=== PATIENT | male | born 1955 | race Caucasian/White ===

== ENCOUNTER → 2016-09-15 | Outpatient (CLI) | payer BC ==
[~2016-09-15] MED LIST: ASPCH81X PO; ATEN50TA21 PO; CANA1TAB5 PO; CHOL1000 PO; CRS/10 PO; LISI40TA PO; MULTTAB5 PO; NAPR1CAP12 PO
[2016-09-15 09:43] LABS: BASO % 1.1 %; BASO ABS # 0.06 K/uL (0-0.2); COMPLETE YES; EOS % 5.2 %; HEMATOCRIT 47.1 % (42-52); IG% 0.2 %; LYMPH % 29.2 %; LYMPH ABS # 1.58 K/uL (1.2-3.4); MEAN CELL VOLUME 88.2 fL (80-100); MEAN CORPUSCULAR HEMOGLOBIN 30.3 pg (25-34); MEAN CORPUSCULAR HGB CONC 34.4 g/dl (32-36); MEAN PLATELET VOLUME 10.8 fL (7.4-10.4); MONO % 10.5 %; NEUT % 53.8 %; PLATELET COUNT 213 K/uL (130-400); RED BLOOD COUNT 5.34 M/uL (4.7-6.1); WHITE BLOOD COUNT 5.42 K/uL (4.8-10.8)
[2016-09-15 09:46] LABS: URINE APPEARANCE CLEAR (CLEAR); URINE BILIRUBIN NEG (NEG); URINE COLOR YELLOW; URINE EPITHELIAL CELL AUTO 0-5 /lpf (0-5); URINE NITRITE NEG (NEG); URINE SPECIFIC GRAVITY 1.043 (1.000-1.030); UROBILINOGEN NEG (NEG); ZZUR CULT IF INDIC CLEAN CATCH NO
[2016-09-15 09:53] LABS: MANUAL MICROSCOPIC REQUIRED? NO; REVIEW REQ? NO
[2016-09-15 09:56] LABS: ALT/SGPT 25 U/L (12-78); BLOOD UREA NITROGEN 20 mg/dl (7-18); BUN/CREATININE RATIO 21.3 (10-20); CALCIUM 9.5 mg/dl (8.5-10.1); CARBON DIOXIDE 23 mmol/L (21-32); CHLORIDE 103 mmol/L (98-107); CHOLESTEROL 196 mg/dl (0-200); CREATININE 0.94 mg/dl (0.60-1.40); GLUCOSE 119 mg/dl (70-99); POTASSIUM 4.1 mmol/L (3.5-5.1); SODIUM 138 mmol/L (136-145)
[2016-09-15 10:06] LABS: ALB/GLOB RATIO 1.2 (0.9-2); ALKALINE PHOSPHATASE 94 U/L (45-117); AST/SGOT 14 U/L (15-37); CHOLESTEROL/HDL RATIO 4.6; HDL CHOLESTEROL 43 mg/dl; LDL CHOLESTEROL CALCULATED 124 mg/dl; PROSTATE SPECIFIC ANTIGEN 0.384 ng/ml (0.000-4.000); TRIGLYCERIDES 147 mg/dl (0-150); VERY LOW DENSITY LIPOPROT CALC 29 mg/dl
[2016-09-15 10:39] LABS: RATIO 16.5 mcg/mg (0-30.0)
[2016-09-15 10:49] LABS: ESTIMATED AVERAGE GLUCOSE 148 mg/dl; HA1C FLAG Normal (Normal)
--- NOTE | 2016-09-17 07:54 | CODING QUERY MEDICAL NECESSITY ---
SUPPORTING DIAGNOSIS NEEDED Dr. Lott, A supporting diagnosis is required for the test/procedure performed on this patient in order for us to be reimbursed by the patient's insurance. Please provide a supporting diagnosis for the following test/procedure listed below next to the test name along with your signature. *If there is no additional diagnosis for this patient that would support the following test/procedure please document that below next to the test/procedure. Test(s)/Procedure(s) that require a supporting diagnosis: * PSA DIAGNOSIS: DATE OF SERVICE: 09/15/16 Provider Signature: Date: Thank you Juan Manuel Chau [facility] Information Management Once completed, please kindly fax back to [phone] For questions please call [phone]
== END | disposition home or self-care (01) ==
LOC: C.LAB 07:30
PROVIDERS: ATTEND Internal Medicine
DX: E11.9 Type 2 diabetes mellitus without complications (principal); E78.5 Hyperlipidemia, unspecified; Z12.5 Encounter for screening for malignant neoplasm of prostate

== ENCOUNTER → 2016-10-15 | Outpatient (CLI) | payer BC, OTHER | END | disposition home or self-care (01) | LOC: C.RDSM 15:30 | PROVIDERS: ATTEND Orthopaedic Surgery Sports Medicine | DX: M79.641 Pain in right hand (principal) ==

== ENCOUNTER → 2017-02-13 | Outpatient (CLI) | payer BC ==
[~2017-02-13] MED LIST changes: +CANA1TAB8 PO; +ROSU40TA PO
[2017-02-13 12:46] LABS: ESTIMATED AVERAGE GLUCOSE 148 mg/dl; HA1C FLAG Normal (Normal)
== END | disposition home or self-care (01) ==
LOC: C.LABBFT 07:58
PROVIDERS: ATTEND Internal Medicine
DX: E78.5 Hyperlipidemia, unspecified (principal); E11.9 Type 2 diabetes mellitus without complications

== ENCOUNTER → 2017-02-18 | Outpatient (CLI) | payer BC ==
[~2017-02-18] MED LIST changes: -CANA1TAB8 PO; -ROSU40TA PO
--- NOTE | 2017-02-18 17:19 | DIAGNOSTIC IMAGING REPORT ---
RIGHT STERNOCLAVICULAR JOINT(S) 3 VIEWS CLINICAL HISTORY: ENLARGEMENT OF STERNOCLAVICULAR JOINT Right COMPARISON STUDY: None. FINDINGS: There is mild cartilage space narrowing and marginal osteophytes at the bilateral sternoclavicular joints consistent with degenerative change. The alignment is intact. No fractures identified. No erosions identified. 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 Electronically signed by: Macho Wilkins M.D. 02/18/2017 5:18 PM Dictated Date/Time: 02/18/2017 5:17 PM
== END | disposition home or self-care (01) ==
LOC: C.RAD 16:49
PROVIDERS: ATTEND Internal Medicine
DX: M25.819 Other specified joint disorders, unspecified shoulder (principal)

== ENCOUNTER 2017-06-15 19:36 | Emergency (ER) | payer BC ==
[~2017-06-15] VITALS: Ht 179.1 cm; Wt 95.5 kg
[2017-06-15 19:52] VITALS: Ht 179.1 cm; Wt 95.5 kg
--- NOTE | 2017-06-15 20:39 | EMERGENCY ROOM VISIT NOTE ---
History Report prepared by Fara: Virgilio Kate Under the Supervision of: Dr. Titi Prakash M.D. First contact with patient: 20:07 Chief Complaint: CARDIAC ASSESSMENT Stated Complaint: PALPITATIONS Nursing Triage Summary: Patient arrives to ED via ALS transport after having 3-4 minute episode of heart racing while sitting and watching TV. Patient has been seeing physician regarding these episodes and notes dizziness for a week or two. Patient had Lisinopril dose cut in half one week ago. Wore Holter monitor for a period of time but showed no episodes/runs of tachycardia. VSS for EMS and BSG 170. SOB noted earlier, denies now. History of Present Illness The patient is a 61 year old male who presents to the Emergency Room with complaints of resolved palpitations that occurred two hours ago. He describes his symptoms as a pounding sensation. The patient states that he had neck stiffness for a week that radiates up to his head. He reports that he has also been lightheaded, which is worse when he bends over. The patient admits that he was on a Holter monitor at one point for these symptoms. He states that today he was sitting and watching television when his heart became tachycardic. The patient states that he was experiencing mild chest pain, mild shortness of breath, and diaphoresis. His states that the patient was "staring". The patient states that the episode lasted for 30 seconds and he sat up and felt better. He reports that he was brought into the ED via EMS and his blood sugar was [address] over. He admits that he had these symptoms before 15 years ago. The patient states that he had to get a shot for treatment in his home and was admitted to the hospital for a couple of days. He admits that he is on blood pressure pills and his pills were decreased by half in dose two weeks ago. The patient admits that he had a stress test five years ago, which was normal. The patient states his brother has a history of blood clots in his legs and lungs and a myocardial infarction. He reports that his PCP is Dr. Lott and he denies seeing a readers' advisory service librarian. The patient denies recent travel, personal blood clot history, swelling in legs, a history of myocardial infarction, and current smoking. 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 A total of 10 systems reviewed and were otherwise negative. Past Medical & Surgical Medical Problems: (1) Diabetes (2) Hypertension Surgical Problems: (1) H/O knee surgery (2) Kidney stone Family History Cancer Diabetes mellitus FH: heart disease Hypertension Social History Smoking Status: Former Smoker Alcohol Use: occasionally Drug Use: none Marital Status: Housing Status: lives with significant other Occupation Status: employed Current/Historical Medications Scheduled Aspirin (Aspirin Chewable), 81 MG PO QAM Atenolol & Chlorthalidone (Tenoretic 50MG/25MG), 1 TAB PO QAM Canagliflozin-Metformin HCl (Invokamet 150-1000 mg), 1 TAB PO BID Cholecalciferol (Vitamin D3), 1,000 UNITS PO QAM Lisinopril (Zestril), 40 MG PO QAM Multiple Vitamins W/ Minerals (Centrum), 1 TAB PO QAM Rosuvastatin Calcium (Crestor), 40 MG PO DAILY Scheduled PRN Naproxen Sodium (Aleve), 2 CAP PO DAILY PRN for Pain Allergies Coded Allergies: No Known Allergies (Verified , 01/16/16) Physical Exam Vital Signs Date Time Temp Pulse Resp B/P (MAP) Pulse Ox O2 Delivery O2 Flow Rate FiO2 06/15/17 23:05 85 17 125/70 96 06/15/17 21:06 92 16 96 06/15/17 21:01 132/87 06/15/17 20:36 91 06/15/17 20:36 89 17 96 06/15/17 20:31 129/87 06/15/17 19:52 92 17 134/56 98 Room Air 06/15/17 19:52 92 Room Air Physical Exam GENERAL: Patient is in no acute distress. HEENT: No acute trauma, normocephalic atraumatic, mucous membranes moist, no nasal congestion, no scleral icterus. NECK: No stridor, no adenopathy, no meningismus, trachea is midline. LUNGS: Clear to auscultation bilaterally, no wheeze, no rhonchi, breath sounds equal. HEART: Without murmurs gallops or rubs, regular rate and rhythm. ABDOMEN: Soft, nontender, bowel sounds positive, no hernias, no peritonitis. EXTREMITIES: No cyanosis or edema, full range of motion of all the joints without pain or difficulty, no signs for acute trauma. NEUROLOGIC: Oriented x 3, no acute motor or sensory deficits, no focal weakness. SKIN: No rash, no jaundice, no diaphoresis. Medical Decision & Procedures ER Provider Diagnostic Interpretation: Radiology results as stated below per my review and radiologist interpretation: SINGLE VIEW CHEST CLINICAL HISTORY: Atypical chest pain. FINDINGS: An AP, portable, upright chest radiograph is obtained. No prior studies are available for comparison at the time of dictation. The examination is degraded by portable technique and apical lordotic positioning. The heart is top normal for projection. The mid stomach contour is within normal limits. A large calcified granuloma versus bone island projects over the left lower chest. The lungs and pleural spaces are otherwise clear. No pneumothorax is seen. The bony thorax is grossly intact. IMPRESSION: No acute cardiopulmonary abnormality. Electronically signed by: Titi Fuentes M.D. 06/15/2017 8:46 PM Dictated Date/Time: 06/15/2017 8:[address] ANGIOGRAM OF THE CHEST CLINICAL HISTORY: Atypical chest pain. Palpitations. COMPARISON STUDY: Chest x-ray dated 06/15/2017. TECHNIQUE: Following the IV administration of 107 cc of Optiray 320, CT angiogram of the chest was performed from the upper abdomen to the thoracic inlet utilizing the pulmonary embolus protocol. Images are reviewed in the axial, sagittal, and coronal planes. 3-D MIPS images are created and assessed. IV contrast was administered without complication. A dose lowering technique was utilized adhering to the principles of ALARA. CT DOSE: 590.78 mGy.cm FINDINGS: Thyroid: Imaged portions of the thyroid gland are normal in size and attenuation. Thoracic aorta: The thoracic aorta is normal in caliber and demonstrates standard 3-vessel arch anatomy. No dissection is seen. There is approximately 50% stenosis identified in the proximal left subclavian artery. Pulmonary vasculature: The pulmonary trunk is normal in caliber. There are no filling defects identified in main, lobar, or segmental pulmonary branches to suggest pulmonary embolus. Heart: The heart is normal in size and configuration, and without pericardial effusion. There are coronary artery calcifications. Lungs and pleural spaces: Evaluation of the lung parenchyma is modestly degraded by motion artifact. A small calcified granuloma is seen in the left upper lobe. No airspace consolidation or pleural effusion is seen. The trachea and central airways are clear. Mediastinum: There is no mediastinal lymphadenopathy. Christine: Clear. Axillae: There is no axillary lymphadenopathy. Upper abdomen: A 12 mm cyst is noted in the left hepatic lobe. A tiny hiatal hernia is identified. Skeletal structures: The skeletal structures appear osteopenic. Degenerative change and mild scoliosis is seen in the thoracic spine. Sclerotic degenerative change is present in the sternoclavicular joints, left greater than right. No lytic or blastic bony lesions are seen. A bone island is present within the anterior left sixth rib. IMPRESSION: 1. There is no evidence of pulmonary embolus in the main, lobar, or segmental pulmonary arteries. 2. No airspace consolidation or pleural effusion is identified. 3. There is approximately 50% stenosis of the proximal left subclavian artery. 4. Additional findings as above. Electronically signed by: Titi Fuentes M.D. 06/15/2017 10:21 PM Dictated Date/Time: 06/15/2017 10:16 PM Laboratory Results 06/15/17 19:21 06/15/17 19:21 Test 06/15/17 19:21 06/15/17 20:29 06/15/17 22:36 Red Blood Count 4.49 M/uL (4.7-6.1) Mean Corpuscular Volume 87.8 fL (80-100) Mean Corpuscular Hemoglobin 30.3 pg (25-34) Mean Corpuscular Hemoglobin Concent 34.5 g/dl (32-36) RDW Standard Deviation 43.2 fL (36.4-46.3) RDW Coefficient of Variation 13.4 % (11.5-14.5) Mean Platelet Volume 10.3 fL (7.4-10.4) Prothrombin Time 10.2 SECONDS (9.0-12.0) Prothromb Time International Ratio 1.0 (0.9-1.1) Activated Partial Thromboplast Time 26.2 SECONDS (21.0-31.0) Partial Thromboplastin Ratio 1.0 Anion Gap 10.0 mmol/L (3-11) Est Creatinine Clear Calc Drug Dose 66.7 ml/min Estimated GFR () 64.6 Estimated GFR (Non- 55.8 BUN/Creatinine Ratio 13.5 (10-20) Calcium Level 9.0 mg/dl (8.5-10.1) Magnesium Level 1.8 mg/dl (1.8-2.4) Total Bilirubin 0.7 mg/dl (0.2-1) Aspartate Amino Transf (AST/SGOT) 12 U/L (15-37) Alanine Aminotransferase (ALT/SGPT) 23 U/L (12-78) Alkaline Phosphatase 77 U/L (45-117) Total Protein 7.2 gm/dl (6.4-8.2) Albumin 3.8 gm/dl (3.4-5.0) Globulin 3.4 gm/dl (2.5-4.0) Albumin/Globulin Ratio 1.1 (0.9-2) Thyroid Stimulating Hormone (TSH) 1.040 uIu/ml (0.300-4.500) Bedside D-Dimer > 450 ng/mlFEU (0-450) Bedside Troponin I < 0.030 ng/ml (0-0.045) Laboratory results reviewed by me. ECG Indication: palpitations Rate (beats per minute): 87 Rhythm: normal sinus Findings: no acute ischemic change, no ectopy ED Course 2009: The patient was evaluated in room C02B. A complete history and physical exam was performed. 2119: I reevaluated the patient and he is doing well. I updated him on his results and he is heading over to CT. 2239: I reevaluated the patient and updated him on his results. 2253: I discussed the patient's case with Dr. Park, [facility] , He reports that the patient is able to go home and be treated as outpatient. 2258: Reevaluated the patient. Discussed results and discharge instructions: He verbalized understanding and agreement. The patient is ready for discharge. Medical Decision The patient is a 61 year old male who presents to the ED with complaints of resolved palpitations that occurred 2 hours ago. Differential diagnoses considered include SVT, Afib or a flutter, Ventricular tachycardia, Cardiac ischemia, anemia, electrolyte imbalance, PE, pneumonia. There is no leukocytosis or concerning anemia. No significant electrolyte abnormality, kidney failure, hepatitis. The patient appears to be in a euthyroid state. EKG shows a normal sinus rhythm, no acute ischemia. Cardiac enzyme testing 2 is not consistent with acute cardiac injury. Chest x-ray does not show pneumonia, mediastinal widening or pneumothorax. D-dimer was elevated. Chest CT does not show PE or evidence for aortic dissection. There was narrowing of the left subclavian artery found incidentally. The patient has been symptom free during his ER stay. I did speak with the readers' advisory service librarian front office help. The patient is being discharged with outpatient follow- up. He will return for any worsening symptoms. He was reassured and discharged home. Medication Reconcilliation Current Medication List: was personally reviewed by me Blood Pressure Screening Patient's blood pressure: Elevated blood pressure Blood pressure disposition: Elevated BP felt to be situational Consults Time Called: 2253 Consulting Physician: Dr. Park, [facility] Returned Call: 2253 I discussed the patient's case with Dr. Park, [facility], He reports that the patient is able to go home and be treated as outpatient. Impression Primary Impression: Palpitations Scribe Attestation The scribe's documentation has been prepared under my direction and personally reviewed by me in its entirety. I confirm that the note above accurately reflects all work, treatment, procedures, and medical decision making performed by me. Departure Information Dispostion Home / Self-Care Referrals Bayron Lott M.D. (PCP) Jose Park, DO Patient Instructions My [facility] Additional Instructions follow with your doctor and cardiology return for the return of symptoms all meds the same for now heart and lung testing was all ok today there was a narrowing to your left subclavian artery incidentally noted for which you can follow with your robbie reyes
[2017-06-15 20:46] LABS: POINT OF CARE TROPONIN I < 0.030 ng/ml (0-0.045)
--- NOTE | 2017-06-15 20:48 | DIAGNOSTIC IMAGING REPORT ---
SINGLE VIEW CHEST CLINICAL HISTORY: Atypical chest pain. FINDINGS: An AP, portable, upright chest radiograph is obtained. No prior studies are available for comparison at the time of dictation. The examination is degraded by portable technique and apical lordotic positioning. The heart is top normal for projection. The mid stomach contour is within normal limits. A large calcified granuloma versus bone island projects over the left lower chest. The lungs and pleural spaces are otherwise clear. No pneumothorax is seen. The bony thorax is grossly intact. IMPRESSION: No acute cardiopulmonary abnormality. Electronically signed by: Titi Fuentes M.D. 06/15/2017 8:46 PM Dictated Date/Time: 06/15/2017 8:45 PM
[2017-06-15 20:49] LABS: PROTHROMBIN TIME (PATIENT) 10.2 SECONDS (9.0-12.0)
[2017-06-15 20:52] LABS: BUN/CREATININE RATIO 13.5 (10-20); CREATININE 1.36 mg/dl (0.60-1.40); MAGNESIUM 1.8 mg/dl (1.8-2.4); POTASSIUM 3.4 mmol/L (3.5-5.1)
[2017-06-15 20:57] LABS: HEMATOCRIT 39.4 % (42-52); MEAN CELL VOLUME 87.8 fL (80-100); MEAN CORPUSCULAR HEMOGLOBIN 30.3 pg (25-34); MEAN CORPUSCULAR HGB CONC 34.5 g/dl (32-36); MEAN PLATELET VOLUME 10.3 fL (7.4-10.4); PLATELET COUNT 186 K/uL (130-400); RED BLOOD COUNT 4.49 M/uL (4.7-6.1); WHITE BLOOD COUNT 6.12 K/uL (4.8-10.8)
[2017-06-15 21:03] LABS: ALB/GLOB RATIO 1.1 (0.9-2); THYROID STIMULATING HORMONE 1.04 uIu/ml (0.300-4.500)
[2017-06-15] MEDS ORDERED: ROSU40TA PO (21:05)
[2017-06-15] MEDS ORDERED: CANA1TAB8 PO (21:07)
[2017-06-15] MEDS ORDERED: OPTIRAY 320 IV PRN (21:30)
--- NOTE | 2017-06-15 22:23 | DIAGNOSTIC IMAGING REPORT ---
CT ANGIOGRAM OF THE CHEST CLINICAL HISTORY: Atypical chest pain. Palpitations. COMPARISON STUDY: Chest x-ray dated 06/15/2017. TECHNIQUE: Following the IV administration of 107 cc of Optiray 320, CT angiogram of the chest was performed from the upper abdomen to the thoracic inlet utilizing the pulmonary embolus protocol. Images are reviewed in the axial, sagittal, and coronal planes. 3-D MIPS images are created and assessed. IV contrast was administered without complication. A dose lowering technique was utilized adhering to the principles of ALARA. CT DOSE: 590.78 mGy.cm FINDINGS: Thyroid: Imaged portions of the thyroid gland are normal in size and attenuation. Thoracic aorta: The thoracic aorta is normal in caliber and demonstrates standard 3-vessel arch anatomy. No dissection is seen. There is approximately 50% stenosis identified in the proximal left subclavian artery. Pulmonary vasculature: The pulmonary trunk is normal in caliber. There are no filling defects identified in main, lobar, or segmental pulmonary branches to suggest pulmonary embolus. Heart: The heart is normal in size and configuration, and without pericardial effusion. There are coronary artery calcifications. Lungs and pleural spaces: Evaluation of the lung parenchyma is modestly degraded by motion artifact. A small calcified granuloma is seen in the left upper lobe. No airspace consolidation or pleural effusion is seen. The trachea and central airways are clear. Mediastinum: There is no mediastinal lymphadenopathy. Christine: Clear. Axillae: There is no axillary lymphadenopathy. Upper abdomen: A 12 mm cyst is noted in the left hepatic lobe. A tiny hiatal hernia is identified. Skeletal structures: The skeletal structures appear osteopenic. Degenerative change and mild scoliosis is seen in the thoracic spine. Sclerotic degenerative change is present in the sternoclavicular joints, left greater than right. No lytic or blastic bony lesions are seen. A bone island is present within the anterior left sixth rib. IMPRESSION: 1. There is no evidence of pulmonary embolus in the main, lobar, or segmental pulmonary arteries. 2. No airspace consolidation or pleural effusion is identified. 3. There is approximately 50% stenosis of the proximal left subclavian artery. 4. Additional findings as above. Electronically signed by: Titi Fuentes M.D. 06/15/2017 10:21 PM Dictated Date/Time: 06/15/2017 10:16 PM
[2017-06-15 23:05] VITALS: BP 125/70; PULSE 85; O2SAT 96
== END 2017-06-15 23:13 | disposition home or self-care (01) ==
LOC: EDBD 19:36 → C.EDC 19:37
DX: R00.2 Palpitations (principal); Z82.49 Family history of ischemic heart disease and other diseases of the circulatory system; E11.9 Type 2 diabetes mellitus without complications; I10 Essential (primary) hypertension; Z83.3 Family history of diabetes mellitus; Z87.891 Personal history of nicotine dependence; Z79.82 Long term (current) use of aspirin

== ENCOUNTER → 2017-06-16 | Outpatient (CLI) | payer BC ==
[~2017-06-16] MED LIST changes: -CANA1TAB5 PO; +CANA1TAB8 PO; -CRS/10 PO; +ROSU40TA PO
--- NOTE | 2017-06-16 16:05 | DIAGNOSTIC IMAGING REPORT ---
CERVICAL SPINE 5 VIEWS HISTORY: NECK PAIN COMPARISON: None. FINDINGS: The cervical spine is visualized from C1 through the superior endplate of T1. There is no fracture. No subluxation. Disc spaces are preserved. Prevertebral soft tissues and the atlantodens interval are intact. Mild to moderate facet osteoarthritis at C2-C3 and C3-C4. Results in mild bilateral neural foraminal narrowing at C3-C4. IMPRESSION: No fracture or subluxation within the cervical spine. Mild bilateral neural foraminal narrowing at C3-C4. Electronically signed by: Macho Wilkins M.D. 06/16/2017 4:04 PM Dictated Date/Time: 06/16/2017 4:02 PM
== END | disposition home or self-care (01) ==
LOC: C.RDSM 15:44
PROVIDERS: ATTEND Family Medicine
DX: M54.2 Cervicalgia (principal)

== ENCOUNTER → 2017-06-18 | Outpatient (CLI) | payer BC ==
[2017-06-18 12:38] LABS: ESTIMATED AVERAGE GLUCOSE 146 mg/dl; HA1C FLAG Normal (Normal)
== END | disposition home or self-care (01) ==
LOC: C.LABBFT 07:57
PROVIDERS: ATTEND Internal Medicine
DX: E11.9 Type 2 diabetes mellitus without complications (principal)

== ENCOUNTER → 2017-07-28 | Outpatient (CLI) | payer BC ==
[2017-07-28 18:01] LABS: BLOOD UREA NITROGEN 18 mg/dl (7-18); BUN/CREATININE RATIO 22.7 (10-20); CALCIUM 9.9 mg/dl (8.5-10.1); CARBON DIOXIDE 30 mmol/L (21-32); CHLORIDE 101 mmol/L (98-107); CREATININE 0.81 mg/dl (0.60-1.40); GLUCOSE 99 mg/dl (70-99); POTASSIUM 3.8 mmol/L (3.5-5.1); SODIUM 137 mmol/L (136-145)
[2017-07-28 18:43] LABS: LYME DISEASE AB IGG NEG (NEG); LYME DISEASE AB IGM NEG (NEG)
== END | disposition home or self-care (01) ==
LOC: C.LAB 17:02
PROVIDERS: ATTEND Physician Assistant Medical
DX: I10 Essential (primary) hypertension (principal); R51 Headache

== ENCOUNTER → 2017-10-08 | Outpatient (CLI) | payer BC ==
[~2017-10-08] MED LIST changes: +GLYB2.5T7 PO; +HYG/25 PO
[2017-10-08 17:36] LABS: HEMATOCRIT 44.6 % (42-52); HEMOGLOBIN 15.5 g/dL (14.0-18.0); MEAN CELL VOLUME 86.4 fL (80-100); MEAN CORPUSCULAR HGB CONC 34.8 g/dl (32-36); MEAN PLATELET VOLUME 10.5 fL (7.4-10.4); PLATELET COUNT 202 K/uL (130-400); RED CELL DISTRIBUTION WIDTH CV 12.8 % (11.5-14.5); RED CELL DISTRIBUTION WIDTH SD 40.9 fL (36.4-46.3); WHITE BLOOD COUNT 5.72 K/uL (4.8-10.8)
[2017-10-08 18:19] LABS: BLOOD UREA NITROGEN 22 mg/dl (7-18); CALCIUM 9.7 mg/dl (8.5-10.1); CARBON DIOXIDE 26 mmol/L (21-32); CREATININE 1.16 mg/dl (0.60-1.40); GLUCOSE 93 mg/dl (70-99); POTASSIUM 3.3 mmol/L (3.5-5.1); SODIUM 135 mmol/L (136-145)
== END | disposition home or self-care (01) ==
LOC: C.LAB1850 16:46
PROVIDERS: ATTEND Physician Assistant
DX: Z01.818 Encounter for other preprocedural examination (principal); G56.00 Carpal tunnel syndrome, unspecified upper limb

== ENCOUNTER → 2017-10-16 | Day surgery (SDC) | payer BC ==
[2017-10-12 11:55] VITALS: Ht 180.3 cm; Wt 95.5 kg
[~2017-10-16] VITALS: Ht 180.3 cm; Wt 95.5 kg
[~2017-10-16] MED LIST changes: -ATEN50TA21 PO; +ATROPINE SULFATE 0.1 MG/ML 5ML SYR IV PRN; +BUPIVACAINE/EPINEPHRINE 0.5% MPF 1:200,000 30 ML VIAL ONE; -CANA1TAB8 PO; +CEFAZOLIN 2000MG IV PUSH 15 ML IV SCH; +EpHEDrine SULFATE INJ 50 MG/ML AMP IV PRN; +FENTANYL CITRATE INJ 50 MCG/1 ML 2 ML VIAL ONE; +LACTATED RINGER'S 1000ML 1,000 ML IV SCH; +LIDOCAINE HCL 1% 20 ML VIAL ONE; +LIDOCAINE HCL 2% 2 ML VIAL (20MG/ML) ONE; +MIDAZOLAM HCL 1 MG/ML 2ML VIAL ONE; +MoRPHine SULFATE 2 MG/ML CARP IV PRN; +MoRPHine SULFATE 4 MG/ML 1 ML CARP\\VIAL IV PRN; +ONDANSETRON INJ 2 MG/ML 2 ML VIAL IV PRN; +ONDANSETRON INJ 2 MG/ML 2 ML VIAL ONE; +OXYCODONE/ACETAMINOPHEN 5-325 TAB PO PRN; +PROPOFOL IV EMULSION 10 MG/ML 20 ML VIAL IV ONE
--- NOTE | 2017-10-16 07:57 | History & Physical Bridge - SC ---
H&P Re-Evaluation Bridge Note: I have examined the patient, reviewed the History & Physical and in the interval since the performance of the History & Physical I have noted the following changes of clinical significance: No changes noted
--- NOTE | 2017-10-16 09:51 | [facility] Post Operative Brief Note ---
Immediate Operative Summary Operative Date Oct 16, 2017. Pre-Operative Diagnosis Left Carpal Tunnel Syndrome Post-Operative Diagnosis Same Procedure(s) Performed Left Arthroscopic Carpal Tunnel Release Surgeon Dr. Laughlin Biological Sciences Professor Surgeon(s) Dr. Carmen Malik, Fellow Estimated Blood Loss 2 ml Findings Consistent with Post-Op Diagnosis Fluids (cc crystalloids) 900 Specimens None Drains None Anesthesia Type MAC Complication(s) none Disposition Disposition: Recovery Room / PACU (Stable)
--- NOTE | 2017-10-16 09:54 | Discharge Instructions-SurgCtr ---
Discharge Instructions Date of Service Oct 16, 2017. Visit Reason for Visit: Left Carpal Tunnel Syndrome Discharge Discharge Diagnosis / Problem: Status post Left Endoscopic Carpal Tunnel Release Discharge Goals Goal(s): Decrease discomfort, Improve function, Increase independence Medications Stopped Medications Name(s): aspirin 81mg daily, last dose 10/09/17 Activity Recommendations Activity Limitations: per Instructions/Follow-up section Lifting Limitations: no more than 5 pounds May Resume Sexual Activity: when tolerated Shower/Bathe: may shower/bathe in 3 days Driving or Machine Use: Not while on Narcotics Anesthesia . Post Anesthesia Instructions: If you have had General Anesthesia or IV Sedation: * Do not drive today. * Resume driving when surgeon permits. * Do not make important decisions or sign legal documents today. * Call surgeon for: 1. Temperature elevations greater than 101 degrees F. 2. Uncontrollable pain. 3. Excessive bleeding. 4. Persistent nausea and vomiting. 5. Medication intolerance (nausea, vomiting or rash). * For nausea and vomiting use only clear liquids such as: tea, soda, bouillon until nausea subsides, then gradually increase diet as tolerated. * If you have any concerns or questions, call your surgeon's office. If physician is unavailable and it is an emergency, call 911 or go to the nearest emergency room. . Instructions / Follow-Up Instructions / Follow-Up Dr. Laughlin in 10-15 days. PT in 3-5 days. Diet Recommendations Home Diet: resume previous diet Procedures Procedures Performed: Left Arthroscopic Carpal Tunnel Release Pending Studies Studies pending at discharge: no Medical Emergencies . Who to Call and When: Medical Emergencies: If at any time you feel your situation is an emergency, please call 911 immediately. . Non-Emergent Contact Non-Emergency issues call your: Surgeon Call Non-Emergent contact if: temperature is above 101.5, your pain is not controlled, wound has increased drainage, wound has increased redness . . "Provider Documentation" section prepared by Nacho Laughlin. .
--- NOTE | 2017-10-16 09:55 | [facility] Operative Report ---
Operative Report Operative Date Oct 16, 2017. Pre-Operative Diagnosis Left Carpal Tunnel Syndrome Post-Operative Diagnosis Same Procedure(s) Performed Left Endoscopic Carpal Tunnel Release Surgeon Dr. Laughlin Television Cameraman Surgeon(s) Dr. Carmen Malik, Fellow Estimated Blood Loss 2 ml Findings Thickened Left Transverse carpal Ligament. Fluids 900 Specimens None Drains None Anesthesia Type MAC Complication(s) none Disposition Recovery Room / PACU (Stable) Indications The patient is a 61 year old male with long standing left carpal tunnel syndrome that has failed conservative treatment. I recommended endoscopic left carpal tunnel release. The patient understands the risks of surgery, which include but are not limited to: bleeding, infection, re-operation, damage to nerves and arteries, continued pain, and stiffness. The patient understands all of these instructions and explanations, all of their questions have been satisfactorily addressed. The patient has elected to proceed with surgery and the informed consent was signed. Description of Procedure The patient was taken to the Operating Room and placed in the supine position on the operating table. After adequate sedation was administered a multidisciplinary time-out was performed identifying my initials on the left upper extremity as the correct and operative limb. Prior to the incisions being made, 2 grams of intravenous Ancef were given. The left upper extremity was prepped and draped in the usual orthopaedic sterile fashion. A Median nerve block was performed in the standard manner, along with superficial injection of the planned incisions with 10 cc of a 50:50 mix of 1% Lidocaine with epi and 0.5% Bupivacaine plain. The Pisiform was marked and the planned transverse incision was marked 0.5 cm proximal and 1.5 cm radial, approximately 1 cm in length. An Esmarch was used to exsanguinate the limb and the tourniquet was inflated to 250mmHg. The planned exit portal was made in- line with the Ring Finger crossing Caplans line. The Transverse incision was carried down through the skin and blunt dissect was carried down through the fascia, protecting any superficial vessels. A freer was used to expose the carpal tunnel to the point of the distal exit portal. The slotted cannula was introduced from proximal to distal and the exit portal was incised and the slotted cannula was delivered out the exit portal. The hand was placed on the extension bump. The arthroscope was placed from proximal to distal to view the Transverse Carpal Ligament (TCL). Multiple Q-tips were used for better exposure. The most distal aspect of the TCL was incised with forward cutting blade. Then the Triangular blade was used to incise the TCL in the mid-portion. The retrograde scalpel was used to connect the two incisions in the TCL. At this point the arthroscope was switched to view from the distal to proximal and the proximal portion of the TCL was incised. Care was taken not incise the skin. The forward cutting blade was used to incise the proximal portion. Then the retrograde blade connected the two incisions in the TCL. The triangular blade was used to incise any remaining fibers of the TCL. The entire release was visualized with the arthroscope. The wounds were copiously irrigated. The trocar was replaced prior to removing the cannula. Both portals were closed with 3-0 Nylon. The incisions were dressed with Xeroform gauze, sterile gauze, sterile Webril, and an PHILOMENA bandage. The sponge and needle counts were correct. The patient was taken to the recovery room in stable condition. Post-op Instructions: Pain medicine prescription was given pre-operatively to be taken as needed. The patient will elevate and ice. No heavy lifting with his left upper extremity. The patient will follow up with me in 10-15 days. I attest to the content of the Intraoperative Record and any orders documented therein. Any exceptions are noted below.
[2017-10-16 10:23] VITALS: BP 134/87; PULSE 82; O2SAT 97
--- NOTE | 2017-10-16 10:24 | Anesthesia Progress Nt - [facility] ---
Anesthesia Post Op Note Date & Time Oct 16, 2017 at 10:24 Vital Signs Pain Intensity: 0 Vital Signs Past 12 Hours Date Time Temp Pulse Resp B/P (MAP) Pulse Ox O2 Delivery O2 Flow Rate FiO2 10/16/17 09:52 36.6 93 16 132/84 (100) 98 Room Air 10/16/17 07:54 36.8 86 18 143/85 (104) 96 Room Air Notes Mental Status: alert / awake / arousable, participated in evaluation Pt Amnestic to Procedure: Yes Nausea / Vomiting: adequately controlled Pain: adequately controlled Airway Patency, RR, SpO2: stable & adequate BP & HR: stable & adequate Hydration State: stable & adequate Anesthetic Complications: no major complications apparent
== END | disposition home or self-care (01) ==
LOC: X.SURG 07:43
PROVIDERS: ATTEND Orthopaedic Surgery Sports Medicine
DX: G56.02 Carpal tunnel syndrome, left upper limb (principal); I10 Essential (primary) hypertension; E11.9 Type 2 diabetes mellitus without complications; E78.5 Hyperlipidemia, unspecified; Z79.82 Long term (current) use of aspirin; Z79.899 Other long term (current) drug therapy; Z98.818 Other dental procedure status; Z96.653 Presence of artificial knee joint, bilateral; Z80.0 Family history of malignant neoplasm of digestive organs; Z82.49 Family history of ischemic heart disease and other diseases of the circulatory system

== ENCOUNTER → 2017-10-21 | Outpatient (CLI) | payer BC ==
[~2017-10-21] MED LIST changes: -ATROPINE SULFATE 0.1 MG/ML 5ML SYR IV PRN; -BUPIVACAINE/EPINEPHRINE 0.5% MPF 1:200,000 30 ML VIAL ONE; -CEFAZOLIN 2000MG IV PUSH 15 ML IV SCH; -EpHEDrine SULFATE INJ 50 MG/ML AMP IV PRN; -FENTANYL CITRATE INJ 50 MCG/1 ML 2 ML VIAL ONE; -LACTATED RINGER'S 1000ML 1,000 ML IV SCH; -LIDOCAINE HCL 1% 20 ML VIAL ONE; -LIDOCAINE HCL 2% 2 ML VIAL (20MG/ML) ONE; -MIDAZOLAM HCL 1 MG/ML 2ML VIAL ONE; -MoRPHine SULFATE 2 MG/ML CARP IV PRN; -MoRPHine SULFATE 4 MG/ML 1 ML CARP\\VIAL IV PRN; -ONDANSETRON INJ 2 MG/ML 2 ML VIAL IV PRN; -ONDANSETRON INJ 2 MG/ML 2 ML VIAL ONE; -OXYCODONE/ACETAMINOPHEN 5-325 TAB PO PRN; -PROPOFOL IV EMULSION 10 MG/ML 20 ML VIAL IV ONE
[2017-10-21 12:26] LABS: BASO % 0.7 %; BASO ABS # 0.04 K/uL (0-0.2); EOS % 1.2 %; EOS ABS # 0.07 K/uL (0-0.5); HEMATOCRIT 45.8 % (42-52); HEMOGLOBIN 15.9 g/dL (14.0-18.0); IG# 0.01 K/uL (0.00-0.02); LYMPH % 20.8 %; LYMPH ABS # 1.24 K/uL (1.2-3.4); MEAN CELL VOLUME 86.9 fL (80-100); MEAN CORPUSCULAR HEMOGLOBIN 30.2 pg (25-34); MEAN CORPUSCULAR HGB CONC 34.7 g/dl (32-36); MEAN PLATELET VOLUME 9.9 fL (7.4-10.4); MONO % 15.3 %; MONO ABS # 0.91 K/uL (0.11-0.59); NEUT % 61.8 %; NEUT ABS # 3.68 K/uL (1.4-6.5); PLATELET COUNT 206 K/uL (130-400); RED CELL DISTRIBUTION WIDTH CV 13.3 % (11.5-14.5); RED CELL DISTRIBUTION WIDTH SD 42.2 fL (36.4-46.3); WHITE BLOOD COUNT 5.95 K/uL (4.8-10.8)
[2017-10-21 12:52] LABS: ALBUMIN 4.1 gm/dl (3.4-5.0); ALT/SGPT 23 U/L (12-78); AST/SGOT 10 U/L (15-37); BLOOD UREA NITROGEN 16 mg/dl (7-18); CALCIUM 10.2 mg/dl (8.5-10.1); CARBON DIOXIDE 27 mmol/L (21-32); CREATININE 0.94 mg/dl (0.60-1.40); GLUCOSE 143 mg/dl (70-99); POTASSIUM 3.4 mmol/L (3.5-5.1); SODIUM 135 mmol/L (136-145)
[2017-10-21 13:00] LABS: ALKALINE PHOSPHATASE 107 U/L (45-117); CHOLESTEROL 165 mg/dl (0-200); LDL CHOLESTEROL CALCULATED 99 mg/dl
[2017-10-21 13:17] LABS: HEMOGLOBIN A1C 7.1 % (4.5-5.6)
[2017-10-21 13:53] LABS: CREATININE RANDOM URINE 76.2 mg/dl
== END | disposition home or self-care (01) ==
LOC: C.LABBFT 07:21
PROVIDERS: ATTEND Internal Medicine
DX: E11.9 Type 2 diabetes mellitus without complications (principal); E78.5 Hyperlipidemia, unspecified; Z12.5 Encounter for screening for malignant neoplasm of prostate

== ENCOUNTER → 2017-11-02 | Outpatient (CLI) | payer BC ==
[~2017-11-02] MED LIST changes: +GADAVIST IV PRN
--- NOTE | 2017-11-02 21:08 | DIAGNOSTIC IMAGING REPORT ---
Brain MRI WITH AND WITHOUT CONTRAST HISTORY: R51 Headache TECHNIQUE: Multiplanar multisequence MRI of the brain was performed both before and after the intravenous administration of contrast. COMPARISON STUDY: None. FINDINGS: There is no hematoma, midline shift, or acute infarct. The paranasal sinuses are clear. The mastoid air cells are clear. The ventricles and sulci demonstrate mild age-related involutional changes. There are few scattered punctate foci of T2 hyperintensity seen within the periventricular white matter which are nonspecific but suggestive of mild microvascular ischemic changes. The major vascular flow voids at the skull base are well-maintained. Small focus of increased T2 signal within the central sandeep which demonstrates faint contrast enhancement. This measures 6 mm. Within the left posterior fossa abutting the undersurface of the entire abdomen there is a 1.8 x 1.5 cm circumscribed T2 hyperintense, T1 hypointense homogeneously enhancing extra-axial lesion. This results in mild mass effect along the left cerebellum. This also demonstrates restricted diffusion. Therefore, this is consistent with a meningioma. IMPRESSION: 1. No acute infarct. 2. No acute intracranial hemorrhage. 3. A 1.8 x 1.5 cm extra-axial lesion within the left posterior fossa which is consistent with a meningioma. 4. A 6 mm T2 hyperintense focus within the central sandeep demonstrating faint enhancement. This favors a capillary telangectasia. Six-month brain MRI follow-up should be performed to ensure stability of these findings. Electronically signed by: Macho Wilkins M.D. 11/02/2017 9:07 PM Dictated Date/Time: 11/02/2017 8:58 PM
== END | disposition home or self-care (01) ==
LOC: C.MRI 19:59
PROVIDERS: ATTEND Physician Assistant Medical
DX: R51 Headache (principal)

== ENCOUNTER → 2017-11-09 | Outpatient (CLI) | payer BC ==
[~2017-11-09] MED LIST changes: -GADAVIST IV PRN
[2017-11-09 09:58] LABS: BLOOD UREA NITROGEN 14 mg/dl (7-18); CALCIUM 9.3 mg/dl (8.5-10.1); CARBON DIOXIDE 29 mmol/L (21-32); CREATININE 0.84 mg/dl (0.60-1.40); GLUCOSE 144 mg/dl (70-99); POTASSIUM 3.9 mmol/L (3.5-5.1); SODIUM 137 mmol/L (136-145)
== END | disposition home or self-care (01) ==
LOC: C.LAB 07:08
PROVIDERS: ATTEND Physician Assistant Medical
DX: E83.52 Hypercalcemia (principal)

== ENCOUNTER 2017-12-08 15:46 | Observation (INO) | payer BC ==
[~2017-12-08] VITALS: Ht 177.8 cm; Wt 94.6 kg
[~2017-12-08 15:46] MED LIST changes: -ASPI81TA28 PO; -HYG25 PO; -LSN40 PO; -ROSU40TA28 PO; -XRL15 PO; -XRL20 PO
--- NOTE | 2017-12-08 16:22 | EMERGENCY ROOM VISIT NOTE ---
History Report prepared by Fara: Huyen Fisher Under the Supervision of: Dr. Titi Prakash M.D. First contact with patient: 16:00 Chief Complaint: ABNORMAL DIAGNOSTIC TESTING Stated Complaint: BLOOD CLOT LEFT LEG History of Present Illness The patient is a 62 year old male who presents to the Emergency Room with complaints of worsening right leg swelling for the past week. He reports pain in the calf with ambulation. He rates this pain as a 4/10 in severity. He denies any current pain. The patient denies chest pain or shortness of breath. He denies any recent surgery, travel, or immobilization. He denies recent trauma or injury. The patient went to his PCP's office today with his symptoms. He had an ultrasound of the RLE which revealed a DVT. He was advised to come to the ED for further evaluation. The patient denies any personal history of blood clots, but he does report a family history of clots. He takes a daily 81mg aspirin. Source of History: patient Onset: 1 week ago Position: leg (right) Symptom Intensity: 4/10 Timing: worsening Modifying Factors (Worsening): other (walking) Associated Symptoms: No chest pain, No SOB Review of Systems See HPI for pertinent positives & negatives. A total of 10 systems reviewed and were otherwise negative. Past Medical & Surgical Medical Problems: (1) Deep vein thrombosis of right lower extremity (2) Diabetes (3) Hypertension Surgical Problems: (1) H/O knee surgery (2) Kidney stone Family History Cancer Diabetes mellitus FH: heart disease Hypertension Social History Smoking Status: Never Smoker Alcohol Use: occasionally Drug Use: none Marital Status: Housing Status: lives with significant other Occupation Status: employed Current/Historical Medications Scheduled Aspirin (Aspirin Ec), 81 MG PO QAM Chlorthalidone (Chlorthalidone), 25 MG PO QAM Cholecalciferol (Vitamin D3), 1,000 INTER.UNIT PO QAM Glyburide (Diabeta), 2.5 MG PO QPM Lisinopril (Lisinopril), 40 MG PO QAM Multiple Vitamins W/ Minerals (Centrum), 1 TAB PO QAM Rosuvastatin Calcium (Rosuvastatin Calcium), 40 MG PO QPM Scheduled PRN Naproxen Sodium (Aleve), 440 MG PO DAILY PRN for Pain Allergies Coded Allergies: No Known Allergies (Verified , 10/16/17) Physical Exam Vital Signs Date Time Temp Pulse Resp B/P (MAP) Pulse Ox O2 Delivery O2 Flow Rate FiO2 12/08/17 17:10 93 12/08/17 15:58 36.8 102 16 132/83 96 Room Air Physical Exam GENERAL: Patient is in no acute distress. HEENT: No acute trauma, normocephalic atraumatic, mucous membranes moist, no nasal congestion, no scleral icterus. NECK: No stridor, no adenopathy, no meningismus, trachea is midline. LUNGS: Clear to auscultation bilaterally, no wheeze, no rhonchi, breath sounds equal. HEART: Without murmurs gallops or rubs, regular rate and rhythm. ABDOMEN: Soft, nontender, bowel sounds positive, no hernias, no peritonitis. EXTREMITIES: Edema to the right lower extremity involving primarily the calf with increased venous vascularity noted, no erythema or rash. NEUROLOGIC: Oriented x 3, no acute motor or sensory deficits, no focal weakness. SKIN: No rash, no jaundice, no diaphoresis. Medical Decision & Procedures ER Provider Diagnostic Interpretation: Radiology results as stated below per my review and radiologist interpretation: R VENOUS DOPP LOWER EXT UNILAT HISTORY: 62 year-old male M79.89 Right leg swelling acute right leg swelling COMPARISON: None available TECHNIQUE: Multiple real-time sonographic images of the right lower extremity deep venous structures were obtained assessing grayscale appearance, color and spectral flow FINDINGS: Occlusive deep venous thrombosis involves the superficial femoral vein extending proximal to distal extending into the popliteal, posterior, tibial and peroneal veins. The common femoral and profunda femoris veins are patent and appear unremarkable. IMPRESSION: Extensive deep venous thrombosis of the right lower extremity extends from the superficial femoral vein to the posterior tibial and peroneal veins. Physicians office was notified of these findings and the patient was subsequently sent to the emergency room. The above report was generate using voice recognition software. It may conain grammatical, syntax or spelling errors. Electronically signed by: Vamsi Alves M.D. 12/08/2017 3:31 PM Dictated Date/Time: 12/08/2017 3:23 PM Laboratory Results 12/08/17 16:34 12/08/17 16:34 Test 12/08/17 16:34 Red Blood Count 5.16 M/uL (4.7-6.1) Mean Corpuscular Volume 87.0 fL (80-100) Mean Corpuscular Hemoglobin 30.4 pg (25-34) Mean Corpuscular Hemoglobin Concent 35.0 g/dl (32-36) RDW Standard Deviation 42.4 fL (36.4-46.3) RDW Coefficient of Variation 13.4 % (11.5-14.5) Mean Platelet Volume 10.0 fL (7.4-10.4) Prothrombin Time 10.1 SECONDS (9.0-12.0) Prothromb Time International Ratio 1.0 (0.9-1.1) Activated Partial Thromboplast Time 25.4 SECONDS (21.0-31.0) Partial Thromboplastin Ratio 1.0 Anion Gap 5.0 mmol/L (3-11) Est Creatinine Clear Calc Drug Dose 95.6 ml/min Estimated GFR () 100.3 Estimated GFR (Non- 86.5 BUN/Creatinine Ratio 18.1 (10-20) Calcium Level 9.5 mg/dl (8.5-10.1) Troponin I < 0.015 ng/ml (0-0.045) Laboratory results reviewed by me. Medications Administered Medications (Trade) Dose Ordered Sig/Alyce Route Start Time Stop Time Status Last Admin Dose Admin Heparin Sodium/ Dextrose (Heparin 25,000 Unit/500ml D5W) 25,000 unit STK-MED ONCE .ROUTE 12/08/17 16:49 12/08/17 16:50 DC 12/08/17 17:05 25,000 UNIT Heparin Sodium (Porcine) (Heparin Iv Bolus) 10,000 unit STK-MED ONCE .ROUTE 12/08/17 16:57 12/08/17 16:58 DC 12/08/17 17:05 10,000 UNIT ECG Per My Interpretation Indication: other Rate (beats per minute): 88 Rhythm: normal sinus Findings: no acute ischemic change, no ectopy, other (no PVCs; no ST elevation) ED Course 1600: The patient was evaluated in room C12B. A complete history and physical exam was performed. 1616: I spoke with Dr. Trent. We discussed the patient's case. The patient will be evaluated by the [facility] for further management. 1619: Heparin Sodium/Dextrose 1621: I reassessed the patient at this time. He is resting comfortably. I discussed the results and treatment plan with the patient. I answered all pertaining questions that he had. He expressed understanding and verbalized agreement. Medical Decision Differential diagnoses includes DVT, PE, coagulopathy, genetic clotting risk, infection, cellulitis, malignancy. There is no leukocytosis or concerning anemia. No significant electrolyte abnormality or kidney failure. No coagulopathy. EKG shows a sinus rhythm, no acute ischemia. Cardiac enzyme testing 1 is not consistent with acute cardiac injury. The patient's outpatient ultrasound today showed an extensive DVT in the right leg. The hypercoagulability workup is pending. Given the size of the DVT, a hospital stay for anticoagulation was felt warranted. I talked to the patient and case management. The on-call hospitalist was consulted. The patient was given an IV heparin bolus and then placed on a IV heparin drip. He did well with this medication. Medication Reconcilliation Current Medication List: was personally reviewed by me Blood Pressure Screening Patient's blood pressure: Elevated blood pressure Blood pressure disposition: Referred to PCP Consults Time Called: 1614 Consulting Physician: Dr. Trent Returned Call: [address] Trent. We discussed the patient's case. The patient will be evaluated by the [facility] for further management. Impression Primary Impression: Right leg DVT Critical Care I have personally spent greater than 30 minutes of critical care time in the direct management of this patient. This includes bedside care, interpretation of diagnostic studies, and testing, discussion with consultants, patient, and family members, and other required patient management activities. This 30 minutes is in excess of all separately billable procedures. Scribe Attestation The scribe's documentation has been prepared under my direction and personally reviewed by me in its entirety. I confirm that the note above accurately reflects all work, treatment, procedures, and medical decision making performed by me. Departure Information Dispostion Being Evaluated By Hospitalist Referrals Bayron Lott M.D. (PCP) Patient Instructions My [facility]
[2017-12-08] MEDS ORDERED: HYG25 PO (16:27)
[2017-12-08] MEDS ORDERED: LSN40 PO (16:27)
[2017-12-08] MEDS ORDERED: ROSU40TA28 PO (16:27)
[2017-12-08] MEDS ORDERED: ASPI81TA28 PO (16:28)
[2017-12-08 16:46] LABS: HEMATOCRIT 44.9 % (42-52); HEMOGLOBIN 15.7 g/dL (14.0-18.0); MEAN CORPUSCULAR HEMOGLOBIN 30.4 pg (25-34); PLATELET COUNT 203 K/uL (130-400); RED CELL DISTRIBUTION WIDTH CV 13.4 % (11.5-14.5); RED CELL DISTRIBUTION WIDTH SD 42.4 fL (36.4-46.3); WHITE BLOOD COUNT 6.66 K/uL (4.8-10.8)
[2017-12-08] MEDS ORDERED: HEPARIN 25000 UNIT/500 ML D5W ONE (16:49)
[2017-12-08 16:56] LABS: PTT PATIENT 25.4 SECONDS (21.0-31.0)
[2017-12-08] MEDS ORDERED: HEPARIN SOD (PORCINE) 1000 UNIT/ML 10 ML VIAL ONE (16:57)
[2017-12-08] MEDS ORDERED: ACETAMINOPHEN 325 MG TAB PO PRN (17:00)
[2017-12-08] MEDS ORDERED: ONDANSETRON INJ 2 MG/ML 2 ML VIAL IV PRN (17:00)
[2017-12-08] MEDS ORDERED: ICU PROTOCOL FOR HYPERGLYCEMIA PRN (17:00)
[2017-12-08] MEDS ORDERED: ALUMINUM/MAGNESIUM/SIMETH (MAALOX MAX) 30 ML UDC PO PRN (17:00)
[2017-12-08 17:06] LABS: BLOOD UREA NITROGEN 17 mg/dl (7-18); CALCIUM 9.5 mg/dl (8.5-10.1); CARBON DIOXIDE 27 mmol/L (21-32); CREATININE 0.94 mg/dl (0.60-1.40); GLUCOSE 104 mg/dl (70-99); POTASSIUM 3.4 mmol/L (3.5-5.1); SODIUM 136 mmol/L (136-145)
--- NOTE | 2017-12-08 17:21 | History and Physical ---
History & Physical Date & Time of Service: Dec 08, 2017 at 17:16 Chief Complaint: Blood Clot Left Leg Primary Care Physician: Bayron Lott M.D. History of Present Illness Source: patient Patient is a pleasant 62 yo M PMH diabetes, HTN, who was sent by his PCP after outpatient USS evaluation for swollen right leg x 1 week revealed extensive DVT. He noticed an insidious onset of R calf swelling 1 week ago. He was not concerned about this at first, as he states his right leg is often swollen after work, but in the last few days he began experiencing posterior right calf cramp-like pain. He visited his PCP this afternoon who ordered ultrasound which subsequently showed extensive DVT from superficial femoral extending to popliteal, posterior tibial, and peroneal veins. He has no recent travel, no hx of trauma, and has not had clots in the past. He has a 1 pack year smoking hx from his teenage years. He does report a family history of PE and DVT in one brother. Past Medical/Surgical History Medical Problems: (1) Deep vein thrombosis of right lower extremity (2) Diabetes (3) Hypertension (4) Palpitations Surgical Problems: (1) H/O knee surgery (2) Kidney stone Family History Cancer Diabetes mellitus FH: heart disease Hypertension Social History Smoking Status: Former Smoker (1/2 pack day for 2 years age 19-20) Alcohol Use: occasionally (2 beers per week) Drug Use: none Marital Status: Housing status: lives with family Occupational Status: employed Allergies Coded Allergies: No Known Allergies (Verified , 10/16/17) Home Medications Scheduled Aspirin (Aspirin Ec), 81 MG PO QAM Chlorthalidone (Chlorthalidone), 25 MG PO QAM Cholecalciferol (Vitamin D3), 1,000 INTER.UNIT PO QAM Glyburide (Diabeta), 2.5 MG PO QPM Lisinopril (Lisinopril), 40 MG PO QAM Multiple Vitamins W/ Minerals (Centrum), 1 TAB PO QAM Rosuvastatin Calcium (Rosuvastatin Calcium), 40 MG PO QPM Scheduled PRN Naproxen Sodium (Aleve), 440 MG PO DAILY PRN for Pain Review of Systems Constitutional: No fever, No chills, No weakness ENT: No hearing loss Respiratory: No cough, No wheezing, No shortness of breath, No dyspnea on exertion, No dyspnea at rest Cardiovascular: + edema, No chest pain Abdomen: No nausea, No vomiting, No diarrhea, No constipation Musculoskeletal: + muscle pain, + swelling, + calf pain Genitourinary - Male: No hematuria Neurologic: No memory loss Endocrine: No fatigue, No excessive thirst Hematologic / Lymphatic: No abnormal bleeding/bruising Integumentary: No rash Physical Exam Vital Signs Date Time Temp Pulse Resp B/P (MAP) Pulse Ox O2 Delivery O2 Flow Rate FiO2 12/08/17 17:10 93 12/08/17 15:58 36.8 102 16 132/83 96 Room Air General Appearance: WD/WN, no apparent distress Head: atraumatic Eyes: PERRL, EOMI, sclerae normal ENT: hearing grossly normal, pharynx normal Neck: supple, no JVD, no carotid bruits, trachea midline Respiratory/Chest: chest non-tender, lungs clear, normal breath sounds, no respiratory distress, no accessory muscle use Cardiovascular: regular rate, rhythm, no edema, no murmur, normal peripheral pulses Abdomen/GI: normal bowel sounds, non tender, soft Extremities/Musculoskelatal: normal inspection, no pedal edema, + calf tenderness (+Julia's sign), + swelling (Minimal difference R>L) 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, no motor/sensory deficits, alert, normal mood/affect, oriented x 3 Skin: normal color Diagnostics Laboratory Results Results Past 24 Hours Test 12/08/17 16:05 12/08/17 16:34 Range/Units White Blood Count 6.66 4.8-10.8 K/uL Red Blood Count 5.16 4.7-6.1 M/uL Hemoglobin 15.7 14.0-18.0 g/dL Hematocrit 44.9 42-52 % Mean Corpuscular Volume 87.0 80-100 fL Mean Corpuscular Hemoglobin 30.4 25-34 pg Mean Corpuscular Hemoglobin Concent 35.0 32-36 g/dl RDW Standard Deviation 42.4 36.4-46.3 fL RDW Coefficient of Variation 13.4 11.5-14.5 % Platelet Count 203 130-400 K/uL Mean Platelet Volume 10.0 7.4-10.4 fL Prothrombin Time 10.1 9.0-12.0 SECONDS Prothromb Time International Ratio 1.0 0.9-1.1 Activated Partial Thromboplast Time 25.4 21.0-31.0 SECONDS Partial Thromboplastin Ratio 1.0 Sodium Level 136 136-145 mmol/L Potassium Level 3.4 3.5-5.1 mmol/L Chloride Level 104 98-107 mmol/L Carbon Dioxide Level 27 21-32 mmol/L Anion Gap 5.0 3-11 mmol/L Blood Urea Nitrogen 17 7-18 mg/dl Creatinine 0.94 0.60-1.40 mg/dl Est Creatinine Clear Calc Drug Dose 95.6 ml/min Estimated GFR () 100.3 Estimated GFR (Non- 86.5 BUN/Creatinine Ratio 18.1 10-20 Random Glucose 104 70-99 mg/dl Calcium Level 9.5 8.5-10.1 mg/dl Troponin I < 0.015 0-0.045 ng/ml Diagnostic Radiology R VENOUS DOPP LOWER EXT UNILAT HISTORY: 62 years-old Male M79.89 Right leg swelling acute right leg swelling COMPARISON: None available TECHNIQUE: Multiple real-time sonographic images of the right lower extremity deep venous structures were obtained assessing grayscale appearance, color and spectral flow FINDINGS: Occlusive deep venous thrombosis involves the superficial femoral vein extending proximal to distal extending into the popliteal, posterior tibial and peroneal veins. The common femoral and profunda femoris veins are patent and appear unremarkable. IMPRESSION: Extensive deep venous thrombosis of the right lower extremity extends from the superficial femoral vein to the posterior tibial and peroneal veins. Physicians office was notified of these findings and the patient was subsequently sent to the emergency room. The above report was generated using voice recognition software. It may contain grammatical, syntax or spelling errors. Electronically signed by: Vamsi Alves M.D. 12/08/2017 3:31 PM Dictated Date/Time: 12/08/2017 3:23 PM Impression Assessment and Plan 62 yo M PMH Diabetes, HTN, found to have extensive R-sided unprovoked DVT after 1 week of leg swelling and increasing calf pain. DVT -xarelto 15 mg BID x 21 days, day 1 -convert to 20 mg daily after 3 weeks -BMP normal -Coag panel ordered, pending -EKG with chest pain HTN -Continue chlorthalidone 25, lisinopril 40 Diabetes -Hold home glyburide -ISS Primary prevention -Continue ASA 81 -Continue rosuvastatin 40 mg daily Code: Full DVTP: pt already has DVT, on xarelto Dispo: Observation, med/surg Resident Physician Supervision Note: I interviewed and examined the patient. Discussed with Dr. Contreras and agree with findings and plan as documented in the note. Any exceptions or clarifications are listed here: None Documented By: Siva Grider leg pain (+) doppler sent to ER now very worried vitals noted nad breathing unlabored no pallor or icterus doppler noted extensive LE DVT -due to extensive DVT - observe initially to ensure no complications ensue -extensive d/w pt and in regards to VTE in its entirety, etiology/pathophys , treatment, complications (both of the disease and of treatment) - laid fears to rest -xarelto -med surg -hopefully home tomorrow Resuscitation Status FULL VTE Prophylaxis Will order VTE Prophylaxis: Yes Reason for no VTE drug order: Contraindicated Reason no Mechanical VTE Order: Treatment not indicated Social Service Consult None Apply Resident Tracking Resident Involvement: Resident Care Provided Care Provided: Adult Hospital Medicine
[2017-12-08] MEDS ORDERED: DEXTROSE 50% 50 ML SYR IV PRN (19:00)
[2017-12-08] MEDS ORDERED: GLUCOSE 40% GEL 15 GM TUBE PO PRN (19:00)
[2017-12-08] MEDS ORDERED: GLUCOSE 10 TABS/TUBE PO PRN (19:00)
[2017-12-08] MEDS ORDERED: GLUCAGON FOR INJ 1 MG VIAL SQ PRN (19:00)
[2017-12-08 19:26] VITALS: BP 133/85; PULSE 93; TEMP 36.6; O2SAT 95
[2017-12-08] MEDS ORDERED: RIVAROXABAN TAB 15 MG TAB PO SCH (20:00)
[2017-12-08] MEDS ORDERED: INSULIN GLARGINE SOLOSTAR 100 UNITS/ML 3 ML PEN SC SCH (20:00)
[2017-12-08] MEDS ORDERED: IV FLUIDS COMPLETED PRN (20:15)
[2017-12-08] MEDS ORDERED: INSULIN ASPART 100 UNITS/ML 3 ML PEN SC SCH (21:00)
[2017-12-08] MEDS ORDERED: ROSUVASTATIN CALCIUM 20 MG TAB PO SCH (21:00)
[2017-12-08 22:36] VITALS: BP 147/80; PULSE 86; TEMP 36.5; O2SAT 94
[2017-12-08 22:41] VITALS: BP 147/80; PULSE 86; TEMP 36.5; Ht 177.8 cm; Wt 94.6 kg
[2017-12-09 07:17] VITALS: BP 120/83; PULSE 83; TEMP 36.6; O2SAT 96
[2017-12-09 08:00] VITALS: O2SAT 96
[2017-12-09] MEDS ORDERED: CHLORTHALIDONE 25 MG TAB PO SCH ×2 (08:00→12:00)
[2017-12-09] MEDS ORDERED: LISINOPRIL 40 MG TAB PO SCH ×2 (08:00→12:00)
[2017-12-09] MEDS ORDERED: ASPIRIN 81 MG ECTAB PO SCH (08:00)
[2017-12-09] MEDS ORDERED: NURSING VERBAL MED ORDER ONE (08:45)
--- NOTE | 2017-12-09 10:32 | Discharge Instructions ---
Discharge Instructions Date of Service Dec 09, 2017. Admission Reason for Admission: Deep Vein Thrombosis Of Right Lower Extremity Discharge Discharge Diagnosis / Problem: Deep Vein Thrombosis of Right Lower Extremity Discharge Goals Goal(s): Improve disease control, Therapeutic intervention, Prevent Disease Progression Activity Recommendations Activity Limitations: per Instructions/Follow-up section . Instructions / Follow-Up Instructions / Follow-Up During this visit you were evaluated and treated for a DVT (deep vein thrombosis ) which is a clot in the leg. You have been started on xarelto, which you will take 15 mg of, twice dailly, for 3 weeks, followed by a 20mg tablet once daily for a total of 3 months of therapy. You may resume your usual activities. As discussed, you may be more prone to minor bleeding and easy bruisability. If you notice that minor cuts do not stop bleeding Continue your other home medications as prescribed. Medication Instructions: * Take your medications exactly as directed * Never skip a dose. Never take a double dose. If you miss a dose, take it as soon as you remember Call your Doctor if you experience any of the following: * Swelling or Pain in your leg * Sudden, continuous pain deep in a muscle * Pain that worsens when you are active or when you stand still for a long time * Chest Pain * Sudden Shortness of Breath * Rapid or pounding heart beat * Fainting * Dizziness * Cough with blood or bloody sputum * Sweating more than normal * Bruises * heavy or uncontrolled bleeding * Blood in your urine, stool or vomit * Black or tarry stools Caring for Your Self at Home: * Avoid sitting, standing or lying down for long periods without moving your legs and feet * When traveling by car, stop to get out and move around at least once every 3 hours * On long airplane, train or bus rides, get up and move around when possible * If you can't get up, wiggle your toes and tighten your calves to keep your blood moving Follow Up: * It is important for you to keep your follow up appointments with your medical provider. Current Hospital Diet Patient's current hospital diet: Diabetes Type 2 Diet Discharge Diet Recommended Diet: Diabetes Type 2 Diet Pending Studies Studies pending at discharge: yes List of pending studies: Coagulation studies Laboratory Results Hemoglobin A1c Test 10/21/17 07:36 Range/Units Estimated Average Glucose 157 mg/dl Hemoglobin A1c 7.1 H 4.5-5.6 % Lipid Panel Test 10/21/17 07:36 Range/Units Triglycerides Level 125 0-150 mg/dl Cholesterol Level 165 0-200 mg/dl HDL Cholesterol 41 mg/dl Cholesterol/HDL Ratio 4.0 LDL Cholesterol, Calculated 99 mg/dl Medical Emergencies . Who to Call and When: Medical Emergencies: If at any time you feel your situation is an emergency, please call 911 immediately. . Non-Emergent Contact Non-Emergency issues call your: Primary Care Provider . . "Provider Documentation" section prepared by Martha Contreras. .
[2017-12-09] MEDS ORDERED: XRL15 PO (10:58)
[2017-12-09] MEDS ORDERED: XRL20 PO (10:58)
[2017-12-09 11:28] VITALS: BP 120/83; PULSE 83; TEMP 36.6; O2SAT 96
[2017-12-09] MEDS ORDERED: RIVAROXABAN TAB 15 MG TAB PO SCH (12:00)
--- NOTE | 2017-12-09 17:51 | Discharge Summary ---
Discharge Summary Date of Service Dec 09, 2017. Discharge Summary Admission Date: Dec 08, 2017 at 17:15 Discharge Date: Dec 09, 2017 Discharge Disposition: Home Principal Diagnosis: RLE DVT Procedures: [~ rep ct add3]] R VENOUS DOPP LOWER EXT UNILAT HISTORY: 62 years-old Male M79.89 Right leg swelling acute right leg swelling COMPARISON: None available TECHNIQUE: Multiple real-time sonographic images of the right lower extremity deep venous structures were obtained assessing grayscale appearance, color and spectral flow FINDINGS: Occlusive deep venous thrombosis involves the superficial femoral vein extending proximal to distal extending into the popliteal, posterior tibial and peroneal veins. The common femoral and profunda femoris veins are patent and appear unremarkable. IMPRESSION: Extensive deep venous thrombosis of the right lower extremity extends from the superficial femoral vein to the posterior tibial and peroneal veins. Physicians office was notified of these findings and the patient was subsequently sent to the emergency room. The above report was generated using voice recognition software. It may contain grammatical, syntax or spelling errors. Electronically signed by: Vamsi Alves M.D. 12/08/2017 3:31 PM Dictated Date/Time: 12/08/2017 3:23 PM Last 24 Hours Test 12/08/17 19:38 12/09/17 07:33 Bedside Glucose 200 mg/dl 119 mg/dl Medication Reconciliation New Medications: Rivaroxaban (Xarelto) 20 Mg Tab 20 MG PO DAILY for 30 Days, #30 TAB Rivaroxaban (Xarelto) 15 Mg Tab 15 MG PO BID@1200,2000 for 20 Days, #40 TAB Continued Medications: Aspirin (Aspirin Ec) 81 Mg Tab 81 MG PO QAM Chlorthalidone (Chlorthalidone) 25 Mg Tab 25 MG PO QAM Cholecalciferol (Vitamin D3) 1,000 Unit Tab 1000 INTER.UNIT PO QAM, TAB Glyburide (Diabeta) 2.5 Mg Tab 2.5 MG PO QPM, TAB Lisinopril (Lisinopril) 40 Mg Tab 40 MG PO QAM Multiple Vitamins W/ Minerals (Centrum) 1 Tab Tab 1 TAB PO QAM Naproxen Sodium (Aleve) 220 Mg Cap 440 MG PO DAILY PRN for Pain Rosuvastatin Calcium (Rosuvastatin Calcium) 40 Mg Tab 40 MG PO QPM Discharge Exam Physical Exam: General Appearance: no apparent distress Eyes: EOMI ENT: hearing grossly normal Neck: trachea midline Respiratory/Chest: no respiratory distress, no accessory muscle use Extremities: normal inspection 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 DVT -xarelto 15 mg BID x 21 days, then -convert to 20 mg daily after 3 weeks -BMP normal -Coag panel ordered, pending -stable for home - no signs of progression or PE HTN -Continue chlorthalidone 25, lisinopril 40 Diabetes -home on home meds Primary prevention -Continue ASA 81 (discussed risk benefit of continuing asa with xarelto given different protective benefits, and with DM and no prior bleeding being on antiplatelet for CAD/CVA prevention appears more favorable than stopping for what is not likely to be a significant bleed risk) -Continue rosuvastatin 40 mg daily stable for discharge to home anticipate only needing anticoagulation for ~3 months given current stability and minor sx. discussed bleed risk. obviously will need aggressive secondary risk reduction / prevention if he's in a "clot provoking situation" but currently as a first-time clot despite being unprovoked, no clear need for usp anticoagulation with family hx most likely genetic hypercoagulability. with age, would definitely want to make sure he's up to date on cancer screenings Total Time Spent: Less than 30 minutes This includes examination of the patient, discharge planning, medication reconciliation, and communication with other providers. Discharge Instructions Please refer to the electronic Patient Visit Report (Discharge Instructions) for additional information. Additional Copies To Bayron Lott M.D.
[2017-12-14 16:44] LABS: ANTICARDIOLIPID AB IGA <11 APL (< = 11)
== END 2017-12-09 11:48 | disposition home or self-care (01) ==
LOC: C.EDB 15:47 → C.4E 17:15 → ENRESERV 17:28
PROVIDERS: ADMIT Family Medicine; ATTEND Family Medicine
DX: I82.491 Acute embolism and thrombosis of other specified deep vein of right lower extremity (principal); I82.441 Acute embolism and thrombosis of right tibial vein; I82.431 Acute embolism and thrombosis of right popliteal vein; E11.9 Type 2 diabetes mellitus without complications; I10 Essential (primary) hypertension; Z83.3 Family history of diabetes mellitus; Z82.49 Family history of ischemic heart disease and other diseases of the circulatory system; Z79.82 Long term (current) use of aspirin; Z79.84 Long term (current) use of oral hypoglycemic drugs; Z79.899 Other long term (current) drug therapy; Z87.891 Personal history of nicotine dependence

== ENCOUNTER → 2017-12-08 | Outpatient (CLI) | payer BC ==
[~2017-12-08] MED LIST changes: +ASPI81TA28 PO; +HYG25 PO; +LSN40 PO; +ROSU40TA28 PO; +XRL15 PO; +XRL20 PO
--- NOTE | 2017-12-08 15:32 | DIAGNOSTIC IMAGING REPORT ---
R VENOUS DOPP LOWER EXT UNILAT HISTORY: 62 years-old Male M79.89 Right leg swelling acute right leg swelling COMPARISON: None available TECHNIQUE: Multiple real-time sonographic images of the right lower extremity deep venous structures were obtained assessing grayscale appearance, color and spectral flow FINDINGS: Occlusive deep venous thrombosis involves the superficial femoral vein extending proximal to distal extending into the popliteal, posterior tibial and peroneal veins. The common femoral and profunda femoris veins are patent and appear unremarkable. IMPRESSION: Extensive deep venous thrombosis of the right lower extremity extends from the superficial femoral vein to the posterior tibial and peroneal veins. Physicians office was notified of these findings and the patient was subsequently sent to the emergency room. The above report was generated using voice recognition software. It may contain grammatical, syntax or spelling errors. Electronically signed by: Vamsi Alves M.D. 12/08/2017 3:31 PM Dictated Date/Time: 12/08/2017 3:23 PM
== END | disposition home or self-care (01) ==
LOC: C.ULTR 14:46
PROVIDERS: ATTEND Physician Assistant Medical
DX: M79.89 Other specified soft tissue disorders (principal); I82.411 Acute embolism and thrombosis of right femoral vein; I82.441 Acute embolism and thrombosis of right tibial vein; I82.401 Acute embolism and thrombosis of unspecified deep veins of right lower extremity